=== PATIENT | male | born 1985 | race African-American/Black ===

== ENCOUNTER 2019-04-18 21:42 | Emergency (ER) | payer SELFPAY ==
[~2019-04-18] VITALS: Ht 175.3 cm; Wt 74.8 kg
[2019-04-18 22:00] VITALS: BP 135/90
--- NOTE | 2019-04-18 22:00 | NUR ---
ED Nurse Note: Patient was BIBA from home due to OD of unknown substance. Patient presented with flat affect, HR 115, other VSS at this time, skin is dry, warm to touch.
--- NOTE | 2019-04-18 22:48 | Emergency Room Report ---
History of Present Illness General Chief Complaint: Substance Abuse Source: EMS Present Illness HPI 33-year-old male presents with possible overdose on heroin, patient unable to give a history, patient was given Narcan in the field when he became responsive. Per nurses note "Pt BIBA 32 from home c/o substance abuse. Per EMS, girlfriend found pt unresponsive in bed. Unk amount. 2 narcan given, pt is becoming more agitated." Patient unable to give a history at the moment Allergies: Coded Allergies: No Known Allergies (Unverified , 04/18/19) Patient History Past Medical History: see triage record Social History: Reports: drug use - opioids, heroin Reviewed Nursing Documentation: PMH: Agreed; PSxH: Agreed Nursing Documentation-PMH Past Medical History Deferred: Patient Unconscious Review of Systems All Other Systems: limited - AMS Physical Exam Vital Signs Date Time Temp Pulse Resp B/P (MAP) Pulse Ox O2 Delivery O2 Flow Rate FiO2 04/18/19 21:42 98.2 93 18 135/90 (105) 98 Room Air Sp02 EP Interpretation: reviewed, normal General Appearance: normal inspection, no apparent distress Head: normocephalic, atraumatic Eyes: bilateral eye PERRL, bilateral eye EOMI, bilateral eye abnormal pupil - Pinpoint bilaterally ENT: uvula midline, moist mucus membranes Neck: supple, thyroid normal, supple/symm/no masses Respiratory: lungs clear, no respiratory distress, no retraction, no accessory muscle use Cardiovascular #1: normal peripheral pulses, regular rate, rhythm, no edema, no gallop, no murmur Gastrointestinal: non tender, soft, no guarding, no rebound Musculoskeletal: normal inspection Neurologic: responsive, other - Moves all 4 extremity spontaneous Skin: no rash, warm/dry Medical Decision Making Diagnostic Impression: Primary Impression: Substance abuse Additional Impression: Amphetamine abuse ER Course 33-year-old male presents with acute drug intoxication, patient shows evidence of dehydration on exam hydration given, will reevaluate patient. Reevaluation 4:43 AM, patient is back to baseline he states he feels back to baseline, he states he may have used something, will not state what he used, patient had a positive UA that was positive for amphetamines and PCP, disposition home with return precautions, patient counseled on drug usage. Laboratory Tests Test 04/18/19 22:55 White Blood Count 4.5 K/UL (4.8-10.8) L Red Blood Count 5.01 M/UL (4.70-6.10) Hemoglobin 13.7 G/DL (14.2-18.0) L Hematocrit 42.0 % (42.0-52.0) Mean Corpuscular Volume 84 FL (80-99) Mean Corpuscular Hemoglobin 27.4 PG (27.0-31.0) Mean Corpuscular Hemoglobin Concent 32.7 G/DL (32.0-36.0) Red Cell Distribution Width 11.8 % (11.6-14.8) Platelet Count 246 K/UL (150-450) Mean Platelet Volume 6.8 FL (6.5-10.1) Neutrophils (%) (Auto) 40.9 % (45.0-75.0) L Lymphocytes (%) (Auto) 42.8 % (20.0-45.0) Monocytes (%) (Auto) 14.7 % (1.0-10.0) H Eosinophils (%) (Auto) 0.4 % (0.0-3.0) Basophils (%) (Auto) 1.2 % (0.0-2.0) Sodium Level 141 MMOL/L (136-145) Potassium Level 3.6 MMOL/L (3.5-5.1) Chloride Level 106 MMOL/L (98-107) Carbon Dioxide Level 29 MMOL/L (21-32) Anion Gap 6 mmol/L (5-15) Blood Urea Nitrogen 10 mg/dL (7-18) Creatinine 1.1 MG/DL (0.55-1.30) Estimate Glomerular Filtration Rate > 60 mL/min (>60) Glucose Level 97 MG/DL (74-106) Calcium Level 9.0 MG/DL (8.5-10.1) Urine Opiates Screen Negative (NEGATIVE) Urine Barbiturates Screen Negative (NEGATIVE) Phencyclidine (PCP) Screen Positive (NEGATIVE) H Urine Amphetamines Screen Positive (NEGATIVE) H Urine Benzodiazepines Screen Negative (NEGATIVE) Urine Cocaine Screen Negative (NEGATIVE) Urine Marijuana (THC) Screen Negative (NEGATIVE) Last Vital Signs Date Time Temp Pulse Resp B/P (MAP) Pulse Ox O2 Delivery O2 Flow Rate FiO2 04/18/19 21:42 98.2 93 18 135/90 (105) 98 Room Air Disposition: HOME, SELF-CARE Condition: Stable Referrals: [facility] Deepa Heller Davian Valentine. [facility] Patient Instructions: Stimulant Use Disorder-Methamphetamines, Substance Use Disorder Additional Instructions: The patient was provided with discharge instructions, notified to follow-up with a primary care doctor and or specialist in the next 24-48 hours, and to return to the ED if they have worsening of their symptoms. Please note that this report is being documented using [employer] technology. This can lead to erroneous entry secondary to incorrect interpretation by the dictating instrument. Jayden Patel MD Apr 18, 2019 22:48
[2019-04-18 23:13] LABS: BASOPHILS % (AUTO) 1.2 % (0.0-2.0); EOSINOPHILS % (AUTO) 0.4 % (0.0-3.0); HEMOGLOBIN 13.7 G/DL (14.2-18.0); LYMPHOCYTES % (AUTO) 42.8 % (20.0-45.0); MEAN CORPUSCULAR VOLUME 84 FL (80-99); MONOCYTES % (AUTO) 14.7 % (1.0-10.0); NEUTROPHILS % (AUTO) 40.9 % (45.0-75.0); PLATELET COUNT 246 K/UL (150-450); RED BLOOD COUNT 5.01 M/UL (4.70-6.10); RED CELL DISTRIBUTION WIDTH 11.8 % (11.6-14.8); WHITE BLOOD COUNT 4.5 K/UL (4.8-10.8)
[2019-04-18] MEDS ORDERED: Haloperidol 5mg/ml Inj IM ONE (23:15)
[2019-04-18] MEDS ORDERED: DiphenhydrAMINE 50mg/ml Inj IVP ONE (23:15)
[2019-04-18] MEDS ORDERED: LORazepam Inj 2mg/ml 1ml IV ONE (23:15)
[2019-04-18 23:21] LABS: ANION GAP 6 mmol/L (5-15); BLOOD UREA NITROGEN 10 mg/dL (7-18); CARBON DIOXIDE 29 MMOL/L (21-32); CHLORIDE 106 MMOL/L (98-107); CREATININE 1.1 MG/DL (0.55-1.30); POTASSIUM 3.6 MMOL/L (3.5-5.1); SODIUM 141 MMOL/L (136-145)
[2019-04-19 01:00] VITALS: BP 125/87
--- NOTE | 2019-04-19 02:30 | NUR ---
ED Nurse Note: Patient is in the bed sleeping, VSS at thios timed, no acute disstress noticed.
[2019-04-19 04:00] VITALS: BP 125/87
--- NOTE | 2019-04-19 05:05 | NUR ---
ED Nurse Note: Tryed to walk patient, patient unable to walk straight. AAO x1, VSS at this time.
[2019-04-19] MEDS ORDERED: Ammonia Inhalant 0.33mL 1 Amp INH ONE (06:00)
[2019-04-19 06:09] VITALS: BP 118/68
--- NOTE | 2019-04-19 06:11 | NUR ---
ER DISCHARGE NOTE: Patient is cleared to be discharged per ERMD, pt is aox4, on room air, with stable vital signs. pt was given dc and prescription instructions, pt was able to verbalize understanding, pt id band and iv site removed without complications. pt is able to ambulate with steady gait. pt took all belongings.
== END 2019-04-19 06:11 | disposition home or self-care (01) ==
LOC: EDBD 21:42 → EMR 22:40
DX: F15.129 Other stimulant abuse with intoxication, unspecified (principal); F19.129 Other psychoactive substance abuse with intoxication, unspecified
CPT/HCPCS: 36415; 80048; 80307; 85025; 96361; 96372; 96374; 96375; 99284